=== PATIENT | male | born 1965 | race Caucasian/White ===

== ENCOUNTER 2022-03-04 06:36 | Emergency (ER) | payer MEDICAID ==
[~2022-03-04] VITALS: Ht 193 cm; Wt 83.8 kg
[~2022-03-04 06:36] MED LIST: CEPH-419 PO; SULF-117 PO
[2022-03-04] MEDS ORDERED: clindamycin 600mg/D5W 50ml 50 ML IV ONE (07:00)
[2022-03-04 07:32] VITALS: BP 113/73
--- NOTE | 2022-03-04 08:10 | NUR ---
vascular at bedside.
[2022-03-04] MEDS ORDERED: CLIN-97 PO (09:29)
== END 2022-03-04 09:47 | disposition home or self-care (01) ==
LOC: ER 06:37
DX: L03.113 Cellulitis of right upper limb (principal); F17.200 Nicotine dependence, unspecified, uncomplicated; F15.10 Other stimulant abuse, uncomplicated; F12.10 Cannabis abuse, uncomplicated; Z59.00 Homelessness unspecified
CPT/HCPCS: 93971; 96365; 99284; J3490

== ENCOUNTER 2022-05-03 12:57 | Emergency (ER) | payer MEDICAID ==
[~2022-05-03] VITALS: Ht 193 cm; Wt 86.4 kg
[~2022-05-03 12:57] MED LIST changes: +CLIN-97 PO
[2022-05-03 13:19] VITALS: BP 91/66
== END 2022-05-03 16:45 | disposition home or self-care (01) ==
LOC: ER 12:58
DX: S00.01XA Abrasion of scalp, initial encounter (principal); S09.90XA Unspecified injury of head, initial encounter; F12.90 Cannabis use, unspecified, uncomplicated; F15.90 Other stimulant use, unspecified, uncomplicated; Z86.14 Personal history of Methicillin resistant Staphylococcus aureus infection; Z59.00 Homelessness unspecified; Z79.2 Long term (current) use of antibiotics; Z79.899 Other long term (current) drug therapy; X58.XXXA Exposure to other specified factors, initial encounter; Y93.89 Activity, other specified; Y92.89 Other specified places as the place of occurrence of the external cause; Y99.8 Other external cause status
CPT/HCPCS: 70450; 99284

== ENCOUNTER 2022-05-24 08:47 | Emergency (ER) | payer MEDICAID ==
[~2022-05-24] VITALS: Ht 193 cm; Wt 95.0 kg
[2022-05-24 10:33] VITALS: BP 127/81
[2022-05-24] MEDS ORDERED: oxyCODONE IR 5mg (immed. release) tablet PO ONE (10:50)
[2022-05-24] MEDS ORDERED: OXYC-481 PO (11:42)
== END 2022-05-24 12:07 | disposition home or self-care (01) ==
LOC: ER 08:47
DX: S42.121A Displaced fracture of acromial process, right shoulder, initial encounter for closed fracture (principal); F12.90 Cannabis use, unspecified, uncomplicated; F15.20 Other stimulant dependence, uncomplicated; W22.8XXA Striking against or struck by other objects, initial encounter; Y93.89 Activity, other specified; Y92.89 Other specified places as the place of occurrence of the external cause; Y99.8 Other external cause status; Z59.00 Homelessness unspecified
CPT/HCPCS: 71045; 73010; 73030; 73080; 99284; A4565

== ENCOUNTER 2024-09-15 00:54 | Emergency (ER) | payer MEDICAID, OTHER ==
[~2024-09-15] VITALS: Ht 193 cm; Wt 82.5 kg
[2024-09-15] MEDS ORDERED: VALA100031 PO (02:11)
[2024-09-15] MEDS ORDERED: HYDR-3965 PO (02:11)
[2024-09-15] MEDS ORDERED: ONDA-245 PO (02:11)
[2024-09-15] MEDS ORDERED: LIDO5CRE2 TOP (02:11)
[2024-09-15] MEDS: ondansetron 4mg rapidly disintigrating tab PO ONE (02:21)
[2024-09-15] MEDS: valacyclovir 500mg tablet PO ONE (02:21)
[2024-09-15] MEDS: ketorolac trometh 30MG/ML vial 30 MG/ML VIAL IM ONE (02:21)
[2024-09-15] MEDS: HYDROcodone/acetaminophen 10/325mg tab PO ONE (02:22)
[2024-09-15] MEDS: LIDOCAINE 5% OINTMENT 35GM TP ONE (02:31)
[2024-09-15 02:34] VITALS: BP 140/89; PULSE 70; RESP 18; TEMP 98.9; O2SAT 99
== END 2024-09-15 02:41 | disposition home or self-care (01) ==
LOC: ER 00:54
DX: B02.9 Zoster without complications (principal); F12.90 Cannabis use, unspecified, uncomplicated; Z88.5 Allergy status to narcotic agent; F15.10 Other stimulant abuse, uncomplicated
CPT/HCPCS: 96372; 99284; J1885

== ENCOUNTER 2025-04-10 15:03 | Emergency (ER) | payer MEDICAID ==
[~2025-04-10] VITALS: Ht 193 cm; Wt 78.5 kg
[~2025-04-10 15:03] MED LIST changes: +LIDO5CRE2 TOP; +ONDA-245 PO; +VALA100031 PO
[2025-04-10 15:06] VITALS: BP 127/82; PULSE 79; O2SAT 97
[2025-04-10 16:07] LABS: BASOPHILS # (AUTO) 0.1 X10'3 (0-0.2); BASOPHILS % (AUTO) 0.9 % (0-1); EOSINOPHILS # (AUTO) 0.3 X10'3 (0-0.9); EOSINOPHILS % (AUTO) 4.6 % (0-6); HEMATOCRIT 41.1 % (42.0-52.0); HEMOGLOBIN 14.3 g/dl (14.0-17.9); LYMPHOCYTES # (AUTO) 2.6 X10'3 (1.1-4.8); LYMPHOCYTES % (AUTO) 34.7 % (21-51); MEAN CORPUSCULAR HEMOGLOBIN 33.5 PG (27.0-31.0); MEAN CORPUSCULAR HGB CONC 34.8 g/dL (33.0-36.5); MEAN CORPUSCULAR VOLUME 96.2 FL (78-98); MEAN PLATELET VOLUME 7.4 FL (7.4-10.4); MONOCYTES # (AUTO) 0.6 X10'3 (0-0.9); MONOCYTES % (AUTO) 7.7 % (2-12); NEUTROPHILS # (AUTO) 3.9 X10'3 (1.8-7.7); NEUTROPHILS % (AUTO) 52.1 % (42-75); PLATELET COUNT 265 X10'3 (140-440); RED BLOOD COUNT 4.27 X10'6 (4.70-6.10); RED CELL DISTRIBUTION WIDTH 12.8 % (11.5-14.5); WHITE BLOOD COUNT 7.4 X10'3 (4.5-11.0)
[2025-04-10 16:19] LABS: ALBUMIN 3.6 G/DL (3.4-5.0); ANION GAP 10 (8-16); BLOOD UREA NITROGEN 19 MG/DL (7-18); BUN/CREATININE RATIO 22.1 (10.0-20.0); CALCIUM 8.9 MG/DL (8.5-10.1); CHLORIDE 106 MMOL/L (99-107); CREATININE 0.86 MG/DL (0.60-1.10); GLUCOSE 102 MG/DL (70-104); POTASSIUM 3.8 MMOL/L (3.5-5.1); SODIUM 142 MMOL/L (135-145); TOTAL CARBON DIOXIDE 26.1 MMOL/L (24-32); eCRCL 101 ML/MIN; eGFR > 90 ML/MIN
[2025-04-10] MEDS ORDERED: SULF1TAB49 PO (18:36)
--- NOTE | 2025-04-10 18:37 | Physician Documentation ---
History of Present Illness ~ Chief Complaint: Wound Stated Complaint: CELLULITIS Time Seen by MD: 18:13 Primary Medical Doctor: none HPI This 60-year-old male who presents with a wound to his right garcia, patient reports that he sustained an abrasion to it proximally a month ago and it has remained reddened swollen for that time, patient reports that it this had some purulent discharge from the area though appeared to be improving. Patient reports that he did take some leftover clindamycin which seem to help. Patient reports that he re-injured it yesterday. Tetanus within 5 years?: Yes Medication Reconciliation Allergies: Coded Allergies: No Known Allergies (Unverified , 05/24/22) Scheduled Cephalexin (Keflex), 500 MG PO 4 times a day Clindamycin HCL* (Clindamycin HCL*), 1 CAP PO Q6H Lidocaine/Prilocaine (Emla Cream), 1 GM TOP DAILY Ondansetron 8mg ODT (Ondansetron Odt), 1 TAB PO Q6H Sulfamethoxazole/Trimethoprim (Septra Ds Tablet), 1 TAB PO BID Sulfamethoxazole/Trimethoprim (Bactrim Ds Tablet), 1 TAB PO Q12H Valacyclovir HCl (Valacyclovir), 1 TAB PO Q8H Past Medical History Past Medical History: MRSA Abscess Past Surgical History: noncontributory Alcohol Use: None Drug Use: marijuana, methamphetamine Lives with: Alone Lives In: Homeless Occupation: disabled Review of Systems ROS Wound to right garcia as stated above in the HPI, otherwise all systems are reviewed and negative. Physical Exam Vital Signs: Temperature: 98.1, Source: Oral, Heart Rate: 79, Respiratory Rate: 18, BP: 127/82, Pulse Oximetry: 97, Weight: 78.550 Oxygen Flow Rate: 0 Physical Exam VITALS: Reviewed and as above. GENERAL: Alert, nontoxic appearing, no apparent distress. RESPIRATORY: No increased work of breathing, no respiratory distress, speaking in full clear sentences SKIN: 3 cm x 7 cm shallow open wound to anterior surface of right garcia with surrounding erythema to the immediate area, mildly tender to touch, no fluct uance, no induration Progress Results/Orders Results/Orders Completed Orders - TATA REILLY ORGANISATIONAL PSYCHOLOGIST Ketorolac Trometh 15mg/Ml Vial (Toradol (04/10/25 18:40) Sulfamethox/Trimetho. Ds Tab (Septra Ds (04/10/25 18:40) Medications Received in ER Medications (Trade) Dose Ordered Sig/Tani Route PRN Reason Start Time Stop Time Status Last Admin Dose Admin (Toradol injection) 15 mg ONCE ONCE IM 04/10/25 18:40 04/10/25 18:41 DC 04/10/25 18:58 15 MG (Septra DS tab) 1 tab ONCE ONCE PO 04/10/25 18:40 04/10/25 18:41 DC 04/10/25 18:59 1 TAB Vital Signs 04/10/25 04/10/25 04/10/25 15:06 18:58 19:02 Temp 98.1 98.1 Pulse 79 Resp 18 16 B/P (MAP) 127/82 Pulse Ox 97 O2 Flow Rate 0 Laboratory Tests Test 04/10/25 15:53 White Blood Count 7.4 Red Blood Count 4.27 L Hemoglobin 14.3 Hematocrit 41.1 L Mean Corpuscular Volume 96.2 Mean Corpuscular Hemoglobin 33.5 H Mean Corpuscular Hemoglobin Concent 34.8 Red Cell Distribution Width 12.8 Platelet Count 265 Mean Platelet Volume 7.4 Neutrophils (%) (Auto) 52.1 Lymphocytes (%) (Auto) 34.7 Monocytes (%) (Auto) 7.7 Eosinophils (%) (Auto) 4.6 Basophils (%) (Auto) 0.9 Neutrophils # (Auto) 3.9 Lymphocytes # (Auto) 2.6 Monocytes # (Auto) 0.6 Eosinophils # (Auto) 0.3 Basophils # (Auto) 0.1 CBC Comment Sodium Level 142 Potassium Level 3.8 Chloride Level 106 Carbon Dioxide Level 26.1 Anion Gap 10 Blood Urea Nitrogen 19 H Creatinine 0.86 Estimated GFR/1.73 m2 > 90 BUN/Creatinine Ratio 22.1 H Glucose Level 102 Calcium Level 8.9 Albumin 3.6 Procalcitonin < 0.05 Chemistry Comments Medical Decision Making Findings 60-year-old male presented with a wound to his right garcia that has been slow to heal reporting some purulent discharge from the area however no significant spread of pain or redness from outside the area of the injury, he reported that he re-injured the area yesterday and was concern for it is healing. Wound appears to be poorly healing though there was not evidence of significant complication as the wound is superficial with minimal surrounding erythema and on my exam no evidence of purulent discharge. Patient is otherwise well- appearing benign physical exam and as he reports feeling otherwise well I have no reason to suspect systemic infection. Patient is hemodynamically stable, and appropriate for outpatient follow up. Patient referred to outpatient wound care for follow up. Patient discharged on course of oral antibiotics due to some concern for infection based on patient's description of purulent discharge and history of MRSA. Patient provided follow up instructions, return to care precautions and home care instructions which he verbalized understanding of. Differential Dx:Considerations: Include: Abscess, Cellulitis, Dressing change, Other (Sepsis, necrotizing fasciitis) Departure Disposition: HOME / SELF CARE / HOMELESS Impression: Primary Impression: Wound Condition: Improved Discharge Instructions: How to Change Your Wound Dressing Additional Instructions: Keep the area clean dry and covered, wash the area at least once a day and changed dressing once a day or sooner if it becomes soiled or wet. Please take the antibiotics as prescribed. Please follow up with the [facility] in the next few days. Please also follow up with your primary care provider in the next few days. Please return to the emergency department for any new or worsening concerning symptoms. Referrals: NO PRIMARY CARE PROVIDER (PCP) [facility], [facility] Prescriptions Sulfamethoxazole/Trimethoprim (Bactrim Ds Tablet) 800 Mg-160 Mg Tablet 1 TAB PO Q12H for 7 Days, #14 TAB Prov: TATA REILLY 04/10/25 Education Educated: Patient Educated regarding: diagnosis, treatment, prognosis, need for follow up Signature Scribe Signature: No scribe Attestation: The note accurately reflects work and decisions made by me.MIA Mckeon 04/11/25 02:24 TATA REILLY April 10, 2025 18:37
[2025-04-10 18:58] VITALS: RESP 16
[2025-04-10] MEDS: ketorolac trometh 15mg/ml vial 15 MG/ML ML IM ONE (18:58)
[2025-04-10] MEDS: sulfamethoxazole/trimethoprim DS (800/160mg) tablet PO ONE (18:59)
[2025-04-10 19:02] VITALS: TEMP 98.1
== END 2025-04-10 19:03 | disposition home or self-care (01) ==
LOC: ER 15:03
DX: S81.801A Unspecified open wound, right lower leg, initial encounter (principal); F12.90 Cannabis use, unspecified, uncomplicated; F15.90 Other stimulant use, unspecified, uncomplicated; Z59.00 Homelessness unspecified; Z60.2 Problems related to living alone; Z79.899 Other long term (current) drug therapy; X58.XXXA Exposure to other specified factors, initial encounter; Y93.89 Activity, other specified; Y92.89 Other specified places as the place of occurrence of the external cause; Y99.8 Other external cause status
CPT/HCPCS: 36415; 80048; 84145; 85025; 96372; 99283; J1885

== ENCOUNTER 2025-05-20 19:00 | Emergency (ER) | payer MEDICAID ==
[~2025-05-20] VITALS: Ht 193 cm; Wt 64.5 kg
[2025-05-20 19:12] VITALS: BP 115/75; PULSE 88; RESP 15; O2SAT 99
[2025-05-20 19:34] LABS: MEAN PLATELET VOLUME 7.7 FL (7.4-10.4); RED CELL DISTRIBUTION WIDTH 13.1 % (11.5-14.5)
--- NOTE | 2025-05-20 19:41 | RADIOLOGY REPORT ---
Procedure: DI CHEST,SINGLE VIEW 05/20/2025 07:20 PM Indication: R/O sepsis, SOB Comparison: CHEST,SINGLE VIEW on DOS: 05/24/22 TECHNIQUE: DI CHEST,SINGLE VIEW FINDINGS/IMPRESSION: The lungs are clear. The cardiomediastinal silhouette is unremarkable. No pleural effusion or pneumo thorax. No acute osseous abnormality.
[2025-05-20 19:48] LABS: CREATININE 1.01 MG/DL (0.60-1.10); TOTAL CARBON DIOXIDE 27.7 MMOL/L (24-32); eCRCL 71 ML/MIN; eGFR 75 ML/MIN
[2025-05-20] MEDS ORDERED: SULF1TAB49 PO (21:52)
--- NOTE | 2025-05-20 21:52 | Physician Documentation ---
History of Present Illness ~ Chief Complaint: Wound Re-Check Stated Complaint: WOUND RECHECK Time Seen by MD: 20:33 Primary Medical Doctor: none HPI Patient is seen today with complaints of swelling and redness and red streak going up his right arm. Patient states he got bit by a spider. 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 Patient has no other concern or complaint at this time. He denies any current fevers or chills. Tetanus within 5 years?: Yes Medication Reconciliation Allergies: Coded Allergies: No Known Allergies (Unverified , 05/20/25) Scheduled Cephalexin (Keflex), 500 MG PO 4 times a day Clindamycin HCL* (Clindamycin HCL*), 1 CAP PO Q6H Lidocaine/Prilocaine (Emla Cream), 1 GM TOP DAILY Ondansetron 8mg ODT (Ondansetron Odt), 1 TAB PO Q6H Sulfamethoxazole/Trimethoprim (Septra Ds Tablet), 1 TAB PO BID Valacyclovir HCl (Valacyclovir), 1 TAB PO Q8H Past Medical History Past Medical History: MRSA Abscess Past Surgical History: noncontributory Alcohol Use: None Drug Use: marijuana, methamphetamine Lives with: Alone Lives In: Homeless Occupation: disabled Review of Systems Constitutional: Denies: chills, fever, weakness Eyes: Denies: pain, blurred vision ENT: Denies: ear pain, nose pain, throat pain, mouth pain Respiratory: Denies: cough, shortness of breath Cardiovascular: Denies: chest pain, palpitations Gastrointestinal: Denies: abdominal pain, nausea, vomiting Genitourinary: Denies: burning, dysuria Male Genitalia: Denies: penile discharge, testicular pain Neurological: Denies: headache, dizziness Musculoskeletal: Denies: pain, swelling Integumentary: Denies: rash, lesions Allergic/Immunologic: Denies: hives, itching Hematologic/Lymphatic: Denies: no symptoms reported Psychiatric: Denies: depression, anxiety Physical Exam Vital Signs: Temperature: 98.8, Source: Temporal, Heart Rate: 88, Respiratory Rate: 15, BP: 115/75, Pulse Oximetry: 99, Weight: 64.500 Physical Exam General: Awake and Alert, no acute distress. HEENT: Conjunctiva pink, Sclera clear, Mucus Membranes moist. Neck: Supple without masses and tenderness. Resp: Unlabored. Lungs clear to auscultation bilaterally. Heart: Regular Rate and rhythm, normal S1 and S2 without murmur, rub or gallop. Extremities: No cyanosis,clubbing or edema. Skin: Patient does have swelling and erythema and induration of skin lesion measuring 3 cm in diameter of the right forearm ulnar aspect midshaft. Patient has red streaking up medial aspect of right upper arm into the axilla and I do not appreciate any significant lymphadenopathy in the right axilla. Progress Results/Orders Results/Orders Vital Signs 05/20/25 19:12 Temp 98.8 Pulse 88 Resp 15 B/P (MAP) 115/75 Pulse Ox 99 Laboratory Tests Test 05/20/25 19:23 White Blood Count 9.5 Red Blood Count 4.30 L Hemoglobin 14.3 Hematocrit 41.7 L Mean Corpuscular Volume 97.1 Mean Corpuscular Hemoglobin 33.2 H Mean Corpuscular Hemoglobin Concent 34.2 Red Cell Distribution Width 13.1 Platelet Count 244 Mean Platelet Volume 7.7 Neutrophils (%) (Auto) 62.2 Lymphocytes (%) (Auto) 24.0 Monocytes (%) (Auto) 10.8 Eosinophils (%) (Auto) 2.5 Basophils (%) (Auto) 0.5 Neutrophils # (Auto) 5.9 Lymphocytes # (Auto) 2.3 Monocytes # (Auto) 1.0 H Eosinophils # (Auto) 0.2 Basophils # (Auto) 0.0 CBC Comment Sodium Level 140 Potassium Level 4.1 Chloride Level 104 Carbon Dioxide Level 27.7 Anion Gap 8 Blood Urea Nitrogen 14 Creatinine 1.01 Estimated GFR/1.73 m2 75 BUN/Creatinine Ratio 13.9 Glucose Level 93 Lactic Acid Level 1.4 Calcium Level 8.9 Albumin 3.5 Procalcitonin 0.05 Chemistry Comments Microbiology Date/Time Source Procedure Growth Status 05/20/25 19:27 Blood Arm Right Blood Culture - Preliminary NEGATIVE (LESS THAN 24 HOURS) Resulted Medical Decision Making Findings Patient is seen today with complaints of swelling and redness and red streak going up his right arm. Patient states he got bit by a spider. 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 Patient has no other concern or complaint at this time. He denies any current fevers or chills. Patient was given dose of Bactrim DS in the ED tonight. Prescription of Bactrim DS sent to patient's pharmacy [facility] one tab twice a day by m outh for 10 days. Patient strongly advised to set up another appointment with wound care and follow up with them and not miss anymore appointments. Patient will return to ED with any worsening, concerning or changing symptoms Departure Disposition: HOME / SELF CARE / HOMELESS Impression: Primary Impression: Cellulitis of right forearm Condition: Stable Discharge Instructions: Abscess, Care After Additional Instructions: Patient was given dose of Bactrim DS in the ED tonight. Prescription of Bactrim DS sent to patient's pharmacy [facility] one tab twice a day by mouth for 10 days. Patient strongly advised to set up another appointment with wound care and follow up with them and not miss anymore appointments. Patient will return to ED with any worsening, concerning or changing symptoms Referrals: NO PRIMARY CARE PROVIDER (PCP) Prescriptions Sulfamethoxazole/Trimethoprim (Bactrim Ds Tablet) 800 Mg-160 Mg Tablet 1 TAB PO Q12H for 10 Days, #20 TAB Prov: FANNY MONTENEGRO 05/20/25 Signature Scribe Signature: No scribe Attestation: No scribe FANNY MONTENEGRO May 20, 2025 21:52
[2025-05-20] MEDS: sulfamethoxazole/trimethoprim DS (800/160mg) tablet PO STA (22:19)
[2025-05-20 22:23] VITALS: TEMP 98.8
== END 2025-05-20 22:25 | disposition home or self-care (01) ==
LOC: ER 19:01
DX: L03.113 Cellulitis of right upper limb (principal); F12.90 Cannabis use, unspecified, uncomplicated; F15.90 Other stimulant use, unspecified, uncomplicated; Z79.899 Other long term (current) drug therapy; Z59.00 Homelessness unspecified
CPT/HCPCS: 36415; 71045; 80048; 83605; 84145; 85025; 87040; 99284